=== PATIENT | male | born 1955 | race Caucasian/White ===

== ENCOUNTER 2018-11-06 12:52 | Inpatient (IN) | payer MEDICARE, OTHER ==
[~2018-11-06] VITALS: Ht 175.3 cm; Wt 80.3 kg
[2018-11-06] MEDS ORDERED: HALOPERIDOL LACTATE 5 MG/ML VIAL IVP ONE (13:15)
[2018-11-06 13:24] LABS: BASOPHILS % (AUTO) 0.1 % (0.0-2.0); EOSINOPHILS % (AUTO) 0.1 % (1.0-6.0); HEMATOCRIT 24.3 % (41-53); HEMOGLOBIN 8.1 g/dL (13.5-17.5); LYMPHOCYTES # (AUTO) 0.5 K/uL (1.0-4.8); LYMPHOCYTES % (AUTO) 4.8 % (22.0-44.0); MEAN CORPUSCULAR HEMOGLOBIN 32.1 pg (26.0-34.0); MEAN CORPUSCULAR HGB CONC 33.2 G/dL (31.0-37.0); MEAN CORPUSCULAR VOLUME 97 fL (80-100); MONOCYTES # (AUTO) 0.6 K/uL (0.1-1.0); MONOCYTES % (AUTO) 5.9 % (2.0-9.0); NEUTROPHILS # (AUTO) 8.8 K/uL (1.8-7.7); PLATELET COUNT (AUTO) 133 K/uL (150-450); RED BLOOD CELL COUNT(AUTO) 2.51 MIL/uL (4.50-5.90); RED CELL DISTRIBUTION WIDTH 19.4 % (11.5-14.5)
[2018-11-06 13:28] LABS: NEUTROPHILS % (AUTO) 89.1 % (40.0-70.0)
[2018-11-06 13:31] LABS: CALCIUM, TOTAL 8.1 mg/dL (8.8-10.5); CREATININE 1.47 mg/dL (0.60-1.30); POTASSIUM 4.8 mmol/L (3.5-5.1)
[2018-11-06 13:32] LABS: INR 1.8 (0.9-1.1); PROTHROMBIN TIME 18.7 SEC (9.4-11.6)
[2018-11-06 13:34] LABS: ALBUMIN 1.7 g/dL (3.4-5.0); BILIRUBIN,TOTAL 4.9 mg/dL (0.1-1.0); TOTAL PROTEIN, SERUM 7.2 g/dL (6.4-8.2)
[2018-11-06] MEDS ORDERED: PANT40TA25 PO (13:42)
[2018-11-06] MEDS ORDERED: SODI325T PO (13:42)
[2018-11-06] MEDS ORDERED: LACT30L PO (13:42)
[2018-11-06] MEDS ORDERED: SPIR50 PO (13:42)
[2018-11-06] MEDS ORDERED: SODI650T PO (14:11)
[2018-11-06] MEDS ORDERED: FentaNYL CITRATE-PF 100 MCG/2 ML VIAL IVP ONE (14:15)
[2018-11-06] MEDS ORDERED: ETOMIDATE 2 MG/ML 10 ML VIAL IVP ONE (14:45)
[2018-11-06 15:41] LABS: SPECIMENTYPE,BODY FLUID ASCITES
[2018-11-06] MEDS ORDERED: CefTRIAXone 1 GM/DEXTROSE 50 ML IV ONE (16:15)
[2018-11-06] MEDS ORDERED: SODIUM CHLORIDE 0.9% 1,000 ML IV ONE (16:15)
[2018-11-06] MEDS ORDERED: 0.9% SODIUM CHLORIDE 10 ML SYRINGE IVP PRN (16:30)
[2018-11-06] MEDS ORDERED: ONDANSETRON HCL 4 MG/2 ML VIAL IVP PRN (16:30)
[2018-11-06] MEDS ORDERED: ACETAMINOPHEN 325 MG TABLET PO PRN (16:30)
[2018-11-06 16:43] LABS: APPEARANCE,SPUN,BODY FLUID CLEAR (CLEAR); APPEARANCE,UNSPUN,BODY FLUID SLIGHTLY CLOUDY (CLEAR); COLOR,BODY FLUID YELLOW (LT YELLOW)
[2018-11-06 16:44] LABS: TOTAL VOLUME,BODY FLUID 2100 mL
[2018-11-06 16:45] LABS: WBC, BODY FLUID 43 /cu. mm.
[2018-11-06 16:50] LABS: BASOPHILS,BODY FLUID 0 %; EOSINOPHILS,BF (ANAL) 0 %; LYMPHOCYTES,BODY FLUID 38 %; MONOCYTES,BODY FLUID 20 %; NEUTROPHILS,BODY FLUID 42 %
[2018-11-06 18:59] VITALS: BP 108/59
[2018-11-06 19:20] VITALS: BP 105/62
[2018-11-06 23:33] VITALS: BP 131/60
[2018-11-07 03:29] VITALS: BP 116/87
[2018-11-07 06:42] LABS: BASOPHILS % (AUTO) 0.2 % (0.0-2.0); EOSINOPHILS % (AUTO) 0.1 % (1.0-6.0); HEMATOCRIT 24.3 % (41-53); HEMOGLOBIN 8.1 g/dL (13.5-17.5); LYMPHOCYTES # (AUTO) 0.6 K/uL (1.0-4.8); LYMPHOCYTES % (AUTO) 5.5 % (22.0-44.0); MEAN CORPUSCULAR HEMOGLOBIN 32.3 pg (26.0-34.0); MEAN CORPUSCULAR HGB CONC 33.6 G/dL (31.0-37.0); MEAN CORPUSCULAR VOLUME 96 fL (80-100); MONOCYTES # (AUTO) 0.7 K/uL (0.1-1.0); MONOCYTES % (AUTO) 6.5 % (2.0-9.0); NEUTROPHILS # (AUTO) 9.3 K/uL (1.8-7.7); PLATELET COUNT (AUTO) 165 K/uL (150-450); RED BLOOD CELL COUNT(AUTO) 2.52 MIL/uL (4.50-5.90); RED CELL DISTRIBUTION WIDTH 19.5 % (11.5-14.5)
[2018-11-07 06:43] LABS: NEUTROPHILS % (AUTO) 87.7 % (40.0-70.0)
[2018-11-07 07:03] LABS: ALBUMIN 1.7 g/dL (3.4-5.0); BILIRUBIN,TOTAL 4.7 mg/dL (0.1-1.0); CALCIUM, TOTAL 8.2 mg/dL (8.8-10.5); CREATININE 1.62 mg/dL (0.60-1.30); POTASSIUM 4.8 mmol/L (3.5-5.1)
[2018-11-07 07:37] VITALS: BP 111/58
[2018-11-07] MEDS ORDERED: ONDANSETRON HCL 4 MG/2 ML VIAL IVP PRN (10:45)
[2018-11-07] MEDS ORDERED: 0.9% SODIUM CHLORIDE 10 ML SYRINGE IVP PRN (10:45)
[2018-11-07 11:24] VITALS: BP 104/71
[2018-11-07] MEDS: PHYTONADIONE 1 MG/0.5 ML AMP SQ SCH (12:14)
[2018-11-07] MEDS: MAGNESIUM SULFATE 2 GM, MVI, ADULT NO.1 WITH VIT K 10 ML, THIAMINE HCL 100 MG, FOLIC AC... IV SCH ×5 (12:14)
[2018-11-07] MEDS: PANTOPRAZOLE SODIUM 40 MG/VIAL IVP SCH (12:14)
[2018-11-07] MEDS: SPIRONOLACTONE 50 MG TABLET PO SCH ×2 (12:14→22:14)
[2018-11-07] MEDS: LACTULOSE 20 GM/30 ML SOLUTION UDCUP PO SCH ×2 (15:32→20:06)
[2018-11-07] MEDS: RIFAXIMIN 550 MG TABLET PO SCH ×2 (15:32→20:06)
[2018-11-07 15:33] VITALS: BP 104/58
[2018-11-07 20:08] VITALS: BP 107/63
[2018-11-08 00:07] VITALS: BP 118/61
[2018-11-08 04:14] VITALS: BP 114/64
[2018-11-08 06:32] LABS: BASOPHILS % (AUTO) 0.1 % (0.0-2.0); EOSINOPHILS % (AUTO) 0.2 % (1.0-6.0); HEMATOCRIT 23.3 % (41-53); HEMOGLOBIN 7.6 g/dL (13.5-17.5); LYMPHOCYTES # (AUTO) 0.6 K/uL (1.0-4.8); LYMPHOCYTES % (AUTO) 7.7 % (22.0-44.0); MEAN CORPUSCULAR HEMOGLOBIN 32.2 pg (26.0-34.0); MEAN CORPUSCULAR HGB CONC 32.6 G/dL (31.0-37.0); MEAN CORPUSCULAR VOLUME 99 fL (80-100); MONOCYTES # (AUTO) 0.5 K/uL (0.1-1.0); PLATELET COUNT (AUTO) 155 K/uL (150-450); RED BLOOD CELL COUNT(AUTO) 2.36 MIL/uL (4.50-5.90); RED CELL DISTRIBUTION WIDTH 21.1 % (11.5-14.5)
[2018-11-08 06:46] LABS: CALCIUM, TOTAL 8.3 mg/dL (8.8-10.5); CREATININE 1.68 mg/dL (0.60-1.30); MAGNESIUM 2.5 mg/dL (1.80-2.40); POTASSIUM 4.9 mmol/L (3.5-5.1)
[2018-11-08 08:01] VITALS: BP 105/60
[2018-11-08] MEDS: PANTOPRAZOLE SODIUM 40 MG/VIAL IVP SCH (08:03)
[2018-11-08] MEDS: LACTULOSE 20 GM/30 ML SOLUTION UDCUP PO SCH ×3 (08:03→20:17)
[2018-11-08] MEDS: PHYTONADIONE 1 MG/0.5 ML AMP SQ SCH (08:04)
[2018-11-08] MEDS: RIFAXIMIN 550 MG TABLET PO SCH ×3 (08:04→20:17)
[2018-11-08] MEDS: SPIRONOLACTONE 50 MG TABLET PO SCH ×2 (08:04→20:19)
[2018-11-08 11:16] VITALS: BP 111/57
[2018-11-08] MEDS: LORazepam 2 MG/ML VIAL IVP PRN ×2 (11:25→22:43)
[2018-11-08] MEDS: MAGNESIUM SULFATE 2 GM, MVI, ADULT NO.1 WITH VIT K 10 ML, THIAMINE HCL 100 MG, FOLIC AC... IV SCH ×5 (12:08)
[2018-11-08 15:58] VITALS: BP 117/68
[2018-11-08 20:30] VITALS: BP 136/69
[2018-11-09] VITALS (7 sets, daily range): BP systolic 84–164; BP diastolic 30–94
[2018-11-09 05:49] LABS: BASOPHILS % (AUTO) 0.2 % (0.0-2.0); EOSINOPHILS % (AUTO) 0.8 % (1.0-6.0); HEMATOCRIT 24.4 % (41-53); HEMOGLOBIN 7.9 g/dL (13.5-17.5); LYMPHOCYTES # (AUTO) 0.5 K/uL (1.0-4.8); MEAN CORPUSCULAR HEMOGLOBIN 32.3 pg (26.0-34.0); MEAN CORPUSCULAR HGB CONC 32.5 G/dL (31.0-37.0); MEAN CORPUSCULAR VOLUME 100 fL (80-100); MONOCYTES # (AUTO) 0.4 K/uL (0.1-1.0); MONOCYTES % (AUTO) 5.4 % (2.0-9.0); NEUTROPHILS # (AUTO) 6.7 K/uL (1.8-7.7); PLATELET COUNT (AUTO) 149 K/uL (150-450); RED BLOOD CELL COUNT(AUTO) 2.46 MIL/uL (4.50-5.90); RED CELL DISTRIBUTION WIDTH 21.8 % (11.5-14.5)
[2018-11-09 06:20] LABS: CALCIUM, TOTAL 7.9 mg/dL (8.8-10.5); CREATININE 1.56 mg/dL (0.60-1.30); MAGNESIUM 2.9 mg/dL (1.80-2.40); POTASSIUM 5.1 mmol/L (3.5-5.1)
[2018-11-09 06:42] LABS: NEUTROPHILS % (AUTO) 86.6 % (40.0-70.0)
[2018-11-09] MEDS: PANTOPRAZOLE SODIUM 40 MG/VIAL IVP SCH (08:22)
[2018-11-09] MEDS: RIFAXIMIN 550 MG TABLET PO SCH ×2 (08:23→17:26)
[2018-11-09] MEDS: SPIRONOLACTONE 50 MG TABLET PO SCH (08:23)
[2018-11-09] MEDS: LACTULOSE 20 GM/30 ML SOLUTION UDCUP PO SCH ×2 (08:32→17:27)
[2018-11-09] MEDS: LORazepam 2 MG/ML VIAL IVP PRN (08:32)
[2018-11-09] MEDS: PHYTONADIONE 1 MG/0.5 ML AMP SQ SCH (10:50)
[2018-11-09] MEDS: MAGNESIUM SULFATE 2 GM, MVI, ADULT NO.1 WITH VIT K 10 ML, THIAMINE HCL 100 MG, FOLIC AC... IV SCH ×5 (12:08)
[2018-11-09] MEDS ORDERED: SODIUM CHLORIDE 0.9% 1,000 ML IV SCH (13:45)
[2018-11-09] MEDS ORDERED: DEXTROSE 5%-WATER 1,000 ML IV ONE (15:00)
[2018-11-09] MEDS ORDERED: CefTRIAXone 1 GM/DEXTROSE 50 ML IV SCH (15:00)
[2018-11-09] MEDS ORDERED: DEXTROSE 50%-WATER 25 GM/50 ML SYRINGE IVP ONE ×2 (15:47→17:53)
[2018-11-09 16:16] LABS: HEMATOCRIT 23.2 % (41-53); MEAN CORPUSCULAR HEMOGLOBIN 32.8 pg (26.0-34.0); MEAN CORPUSCULAR HGB CONC 30.1 G/dL (31.0-37.0); MEAN CORPUSCULAR VOLUME 109 fL (80-100); PLATELET COUNT (AUTO) 97 K/uL (150-450); RED BLOOD CELL COUNT(AUTO) 2.13 MIL/uL (4.50-5.90); RED CELL DISTRIBUTION WIDTH 22.1 % (11.5-14.5)
[2018-11-09 16:29] LABS: CALCIUM, TOTAL 7.7 mg/dL (8.8-10.5); CREATININE 2.53 mg/dL (0.60-1.30); POTASSIUM 5.6 mmol/L (3.5-5.1)
[2018-11-09] MEDS ORDERED: SODIUM BICARBONATE 150 MEQ in DEXTROSE 5%-WATER 1,000 ML IV SCH (16:30)
[2018-11-09 16:33] LABS: ALBUMIN 1.1 g/dL (3.4-5.0); BILIRUBIN,TOTAL 1.4 mg/dL (0.1-1.0); TOTAL PROTEIN, SERUM 5.1 g/dL (6.4-8.2)
[2018-11-09] MEDS ORDERED: DOPamine HCL 400 MG/D5%-WATER 250 ML IV PRN (17:00)
[2018-11-09] MEDS ORDERED: NOREPINEPHRINE 4 MG/D5%-WATER 250 ML IV PRN (17:00)
[2018-11-09] MEDS ORDERED: SODIUM CHLORIDE 0.9% 250 ML IV ONE (17:04)
[2018-11-09 17:30] LABS: CORRECTED WHITE BLOOD COUNT 3.5 K/uL (4.5-11.0)
[2018-11-09 17:33] LABS: PATHOLOGY REVIEW, DIFF YES
[2018-11-09] MEDS ORDERED: DEXTROSE 50%-WATER 25 GM/50 ML SYRINGE IVP PRN (18:00)
[2018-11-09] MEDS ORDERED: SODIUM CHLORIDE 0.9% 0 ML IV ONE (18:07)
[2018-11-09] MEDS ORDERED: DEXTROSE 10%-WATER 1,000 ML IV SCH (18:15)
[2018-11-09 18:18] LABS: BAND NEUTROPHILS % (MANUAL) 25 % (0-5); LYMPHOCYTES % (MANUAL) 27 % (22-44); METAMYELOCYTES % 1 % (0-0); MONOCYTES % (MANUAL) 2 % (2-9); MYELOCYTES % 1 % (0-0); SEGMENTED NEUTROPHILS % 44 % (40-70)
[2018-11-09 18:29] LABS: GLUCOSE,POINT OF CARE 33 MG/DL (70-110)
[2018-11-09 18:29] LABS: GLUCOSE,POINT OF CARE 107 MG/DL (70-110)
[2018-11-09 20:02] LABS: SOURCE, BLOOD GAS ARTERIAL; TEMPERATURE, FAHRENHEIT, BG 97.4 FAHREN (96.0-98.6)
[2018-11-09 20:04] LABS: ABG A-A DIFF O2 458.2 mmHg (10-20.0); ABG BASE EXCESS -29.5 mmol/L (-2.0-3.0); ABG CARBOXYHEMOGLOBIN 0.5 % (0.0-1.5); ABG METHEMOGLOBIN 0.4 % (0.0-1.5); ABG OXYGEN CONTENT 11.9 mL/dL (15.0-23.0); ABG OXYGEN SATURATION 98.2 % (95.0-98.0); ABG OXYHEMOGLOBIN 97.3 % (94.0-100.0); ABG PCO2 51 mmHg (35-45); ABG TOTAL HEMOGLOBIN 8.3 G/dL (12.0-18.0); PO2, ARTERIAL BG 205.6 mmHg (79.0-87.0)
[2018-11-09 20:05] LABS: ABG HCO3 4.2 mmol/L (22.0-26.0); ABG PH 6.715 (7.35-7.450); O2 DEVICE,BLOOD GAS VENTILATOR (ROOM AIR); SITE, BLOOD GAS RT RADIAL; VT, ABG 400 ml
[2018-11-09 20:06] LABS: PEEP,BG 5 cm H2O
[2018-11-09 20:23] LABS: GLUCOMETER DEV NAME(LOC) 5S.1; GLUCOSE,POINT OF CARE < 10 MG/DL (70-110)
[2018-11-09 20:23] LABS: GLUCOMETER DEV NAME(LOC) 5S.1; GLUCOSE,POINT OF CARE 97 MG/DL (70-110)
[2018-11-09] MEDS ORDERED: DOPamine HCL/D5W 400 MG/250 ML IV BAG IV ONE (20:52)
[2018-11-09] MEDS ORDERED: EPINEPHrine 1:10,000 [1 MG/10 ML] SYRINGE IVP ONE (20:52)
[2018-11-09] MEDS ORDERED: SODIUM BICARBONATE [ADULT] 8.4% 50 MEQ/50 ML SYRINGE IVP ONE (20:52)
[2018-11-09 23:00] LABS: APPEARANCE,URINE CLOUDY (CLEAR); BILIRUBIN,URINE NEGATIVE (NEGATIVE); GLUCOSE, URINE (UA) NEGATIVE (NEGATIVE); KETONES,URINE NEGATIVE (NEGATIVE); LEUKOCYTE ESTERASE ,URINE MODERATE (NEGATIVE); NITRATE,URINE NEGATIVE (NEGATIVE); OCCULT BLOOD,URINE LARGE (NEGATIVE); PROTEIN,URINE TRACE (NEGATIVE); UROBILINOGEN,URINE 0.2 mg/dL (<=1.0)
[2018-11-09 23:01] LABS: CREATININE,URINE RANDOM 77.3 mg/dL (30.0-125.0)
[2018-11-09 23:12] LABS: RBC,URINE >100 /HPF (0-2)
[2018-11-09 23:14] LABS: BACTERIA,URINE Few /HPF (None Seen); SQUAMOUS EPITHELIAL CELL,UR Rare /LPF (None Seen)
[2018-11-09 23:17] LABS: URIC ACID CRYSTALS,URINE Moderate /LPF (None Seen)
== END 2018-11-09 20:53 | disposition expired | DRG 871 ==
LOC: EMS 13:02 → 5S 17:10 → ICU 11-09 16:20
PROVIDERS: ADMIT Internal Medicine; ATTEND Internal Medicine Geriatric Medicine
PROC: 0W9G3ZZ Drainage of Peritoneal Cavity, Percutaneous Approach (ICD-10-PCS; principal; 2018-11-06)
PROC: 0BH17EZ Insertion of Endotracheal Airway into Trachea, Via Natural or Artificial Opening (ICD-10-PCS; 2018-11-09)
PROC: 06HM33Z Insertion of Infusion Device into Right Femoral Vein, Percutaneous Approach (ICD-10-PCS; 2018-11-09)
PROC: 5A1935Z Respiratory Ventilation, Less than 24 Consecutive Hours (ICD-10-PCS; 2018-11-09)
DX: A41.9 Sepsis, unspecified organism (principal); K65.2 Spontaneous bacterial peritonitis; J69.0 Pneumonitis due to inhalation of food and vomit; J96.01 Acute respiratory failure with hypoxia; N17.0 Acute kidney failure with tubular necrosis; R65.21 Severe sepsis with septic shock; E43 Unspecified severe protein-calorie malnutrition; D61.818 Other pancytopenia; D68.4 Acquired coagulation factor deficiency; E87.0 Hyperosmolality and hypernatremia; D53.9 Nutritional anemia, unspecified; E16.2 Hypoglycemia, unspecified; I46.9 Cardiac arrest, cause unspecified; K70.31 Alcoholic cirrhosis of liver with ascites; K72.90 Hepatic failure, unspecified without coma; N18.9 Chronic kidney disease, unspecified; Z51.5 Encounter for palliative care; Z66 Do not resuscitate; L89.159 Pressure ulcer of sacral region, unspecified stage; Z68.26 Body mass index [BMI] 26.0-26.9, adult; Z79.899 Other long term (current) drug therapy
CPT/HCPCS: 36600; 49083; 70450; 76770; 76942; 82570; 82805; 83735; 84156; 84300; 84540; 87040; 87070; 87081; 87086; 89051; 92610; 92950; 93005; 94002; 96374; 96375; 99242; C9113; G0378; J0171; J0696; J1265; J1630; J2060; J3010; J3411; J3430; J3475; J3490; J7030; J7040; J7050; J7060